=== PATIENT | female | born 1950 | race African-American/Black ===

== ENCOUNTER 2020-08-16 18:00 | Emergency (ER) | payer SELFPAY ==
[2020-08-16 19:33] LABS: Protime INR 1.08
[2020-08-16 19:35] LABS: Absolute Lymphocytes (CBC) 0.8 K/uL (0.7-4.9); Basophils % 1.1 % (0-1.3); Hematocrit 38.1 % (36.0-45.0); MPV 8.2 fL (7.6-11.3); RBC Red Blood Cell Count 5.33 M/uL (3.86-4.86)
[2020-08-16] MEDS ORDERED: BENZONATATE 100 MG CAP PO ONE (19:37)
[2020-08-16 19:49] LABS: ALT/SGPT 13 U/L (12-78); AST/SGOT 16 U/L (15-37); Albumin 3.8 g/dL (3.4-5.0); Alkaline Phosphatase 87 U/L (45-117); BUN Blood Urea Nitrogen 14 mg/dL (7-18); Bicarbonate 21 mmol/L (21-32); Bilirubin Direct < 0.1 mg/dL (0-0.2); Bilirubin Total 0.2 mg/dL (0.2-1.0); Glucose Level 104 mg/dL (74-106); Magnesium 2.3 mg/dL (1.8-2.4); NT PRO-BNP 81 pg/mL (<125); Protein, Total 8.2 g/dL (6.4-8.2); Sodium Level 145 mmol/L (136-145); Troponin (Emerg Dept Use Only) < 0.02 ng/mL (0.0-0.045)
--- NOTE | 2020-08-16 19:50 | RAD REPORT ---
EXAM DESCRIPTION: RAD - Chest Single View - 08/16/2020 7:04 pm CLINICAL HISTORY: Cough;SOB COMPARISON: None TECHNIQUE: AP portable chest image was obtained 08/16/2020 7:04 pm . FINDINGS: Lungs appear fibrotic with no peripheral mass or consolidation. No failure or volume ident ified. Heart and vasculature are normal. No measurable pleural effusion and no pneumothorax. No acute bone finding. Moderately prominent scoliotic curvature present in the spine. No acute aortic finding s suspected. IMPRESSION: Prominent interstitial pattern likely baseline mild fibrosis. No acute cardiopulmonary finding.
[2020-08-16 20:21] LABS: Blood Morphology Comment NOTED (NOT SEEN); Platelet Estimate ADEQ; White Blood Cell Scan OK (OK)
[2020-08-16 20:22] LABS: Burr Cells FEW
[2020-08-16] MEDS ORDERED: POTASSIUM 25 MEQ EFFERV TAB ONE (20:23)
[2020-08-16 20:50] LABS: SARS-COV-2 RT PCR NEGATIVE (NEGATIVE)
[2020-08-16] MEDS ORDERED: NA CHLORIDE 0.9% 250 ML ONE (20:59)
--- NOTE | 2020-08-16 21:45 | ER ---
Nurse's Notes [facility] Name: Kristine Christensen Age: 69 yrs Sex: Female : 1950 Arrival Date: 08/16/2020 Time: 18:01 Bed 13 Private MD: Diagnosis: Cough Presentation: 08/16 18:06 Chief complaint: Patient states: Cough and SOB started today. Denies fever. Coronavirus ca1 screen: Client denies travel out of the [place] in the last 14 days. cough unrelated to allergies, shortness of breath, Client presents with at least one sign or symptom that may indicate coronavirus-19. Standard/surgical mask placed on the client. Provider contacted for isolation considerations. Ebola Screen: Patient negative for fever greater than or equal to 101.5 degrees Fahrenheit, and additional compatible Ebola Virus Disease symptoms Patient denies exposure to infectious person. Patient denies travel to an Ebola-affected area in the 21 days before illness onset. No symptoms or risks identified at this time. Initial Sepsis Screen: Does the patient meet any 2 criteria? No. Patient's initial sepsis screen is negative. Does the patient have a suspected source of infection? No. Patient's initial sepsis screen is negative. Risk Assessment: Do you want to hurt yourself or someone else? Patient reports no desire to harm self or others. Onset of symptoms was August 16, 2020. 18:06 Method Of Arrival: Wheelchair ca1 18:06 Acuity: MARY 3 ca1 Triage Assessment: 18:19 General: Appears in no apparent distress. comfortable, Behavior is calm, cooperative, ca1 appropriate for age. Pain: Denies pain. EENT: No signs and/or symptoms were reported regarding the EENT system. Neuro: Level of Consciousness is awake, alert, obeys commands, Oriented to person, place, time, situation. Cardiovascular: Heart tones S1 S2 present Capillary refill < 3 seconds Patient's skin is warm and dry. Rhythm is sinus tachycardia. Respiratory: Reports shortness of breath on exertion since this morning cough that is Onset: The symptoms/episode began/occurred this morning, the patient has mild shortness of breath. GI: Abdomen is flat, non-distended, Bowel sounds present X 4 quads. Abd is soft and non tender X 4 quads. : No signs and/or symptoms were reported regarding the genitourinary system. Derm: Skin is intact, is healthy with good turgor, Skin is pink, warm \T\ dry. Musculoskeletal: Circulation, motion, and sensation intact. Capillary refill < 3 seconds. Historical: - Allergies: 18:19 No Known Allergies; ca1 - Home Meds: 18:19 None [Active]; ca1 - PMHx: 18:19 None; ca1 - PSHx: 18:19 ; ca1 - Immunization history:: Pneumococcal vaccine is not up to date, Flu vaccine is up to date. - Social history:: Smoking status: Patient denies any tobacco usage or history of. Screenin:10 Abuse screen: Denies threats or abuse. Denies injuries from another. Nutritional ca1 screening: No deficits noted. Tuberculosis screening: No symptoms or risk factors identified. Fall Risk IV access (20 points). Assessment: 18:10 Reassessment: See triage notes. Cardiovascular: Heart tones S1 S2 present Capillary ca1 refill < 3 seconds Patient's skin is warm and dry. Rhythm is sinus tachycardia. Respiratory: Airway is patent Respiratory effort is even, unlabored, Breath sounds are clear bilaterally. 19:24 Reassessment: Patient appears in no apparent distress at this time. Patient and/or ca1 family updated on plan of care and expected duration. Pain level reassessed. Patient is alert, oriented x 3, equal unlabored respirations, skin warm/dry/pink. Vital Signs: 18:06 BP 136 / 81; Pulse 107; Resp 22 S; Temp 97.3(O); Pulse Ox 97% on R/A; Weight 54.43 kg ca1 (R); Height 5 ft. 2 in. (157.48 cm); Pain 0/10; 19:24 BP 143 / 81; Pulse 106; Resp 19; Pulse Ox 95% on R/A; ca1 18:06 Body Mass Index 21.95 (54.43 kg, 157.48 cm) ca1 ED Course: 18:01 Patient arrived in ED. ds1 18:10 Patient has correct armband on for positive identification. Placed in gown. Bed in low ca1 position. Call light in reach. Side rails up X2. teletypesetter monitor on. Pulse ox on. NIBP on. 18:10 No provider procedures requiring assistance completed. ca1 18:15 Sarah Romano, IVANA is Primary Nurse. ca1 18:16 Hugo Chowdhury PA is PHCP. cp 18:16 Chetan Camejo MD is Attending Physician. cp 18:18 Triage completed. ca1 18:19 Arm band placed on right wrist. ca1 19:03 XRAY Chest (1 view) In Process Unspecified. EDMS 19:08 Initial lab(s) drawn, by me, sent to lab. Inserted saline lock: 22 gauge in right ca1 antecubital area, using aseptic technique. Blood collected. 19:30 Report given to IVANA Hammond. ca1 Administered Medications: 19:23 Drug: Tessalon Perle 100 mg Route: PO; ca1 20:10 Drug: Potassium Effervescent Tablet 50 mEq Route: PO; ll2 20:30 Drug: NS 0.9% 250 ml Route: IV; Rate: bolus; Site: right antecubital; ll2 22:00 Not Given (Physician Discretion): Labetalol 10 mg IVP once over 2 mins; Hold if HR less ll2 than 60, notify provider. Ask for repeat dosage for SBP remaining greater than 140 mmHg. Outcome: 21:45 Discharge ordered by . cp 22:01 Patient left the ED. ll2 Signatures: Dispatcher [employer] EDKS Annabel Sewell ds1 Hugo Chowdhury PA PA cp Sarah Romano RN RN ca1 Stephany Holden RN RN ll2 Corrections: (The following items were deleted from the chart) 18:21 18:06 BP 136 / 81; Pulse 107bpm; Resp 19bpm; Spontaneous; Pulse Ox 97% RA; Temp 97.3F ca1 Oral; 54.43 kg Reported; Height 5 ft. 2 in.; BMI: 21.9; Pain 0/10; ca1
--- NOTE | 2020-08-16 21:45 | EDPHYS ---
Physician Documentation [facility] Name: Kristine Christensen Age: 69 yrs Sex: Female : 1950 Arrival Date: 08/16/2020 Time: 18:01 Bed 13 Private MD: ED Physician Chetan Camejo HPI: 08/16 18:40 This 69 yrs old Black Female presents to ER via Wheelchair with complaints of Shortness cp Of Breath. 18:40 The patient has shortness of breath with light activity. Onset: The symptoms/episode cp began/occurred today. The patient's shortness of breath is aggravated by light activity. Associated signs and symptoms: Pertinent positives: productive cough, Pertinent negatives: chest pain, diaphoresis, dizziness, fever. Severity of symptoms: in the emergency department the symptoms are unchanged despite home interventions. Historical: - Allergies: 18:19 No Known Allergies; ca1 - Home Meds: 18:19 None [Active]; ca1 - PMHx: 18:19 None; ca1 - PSHx: 18:19 ; ca1 - Immunization history:: Pneumococcal vaccine is not up to date, Flu vaccine is up to date. - Social history:: Smoking status: Patient denies any tobacco usage or history of. ROS: 18:45 Constitutional: Negative for body aches, chills, fever, poor PO intake. cp 18:45 Eyes: Negative for injury, pain, redness, and discharge. cp 18:45 ENT: Negative for ear pain, sore throat, difficulty swallowing, difficulty handling secretions. 18:45 Cardiovascular: Negative for chest pain, edema, palpitations. 18:45 Respiratory: Positive for cough, with no reported sputum, shortness of breath, on exertion. Negative for wheezing. 18:45 Abdomen/GI: Negative for abdominal pain, nausea, vomiting, and diarrhea, black/tarry stool, rectal bleeding. 18:45 Back: Negative for pain at rest, pain with movement. 18:45 Skin: Negative for rash. 18:45 Neuro: Negative for altered mental status, headache, syncope, weakness. 18:45 All other systems are negative. Exam: 19:00 Constitutional: The patient appears in no acute distress, alert, awake, cp non-diaphoretic, non-toxic, well developed, well nourished. 19:00 Head/Face: Normocephalic, atraumatic. cp 19:00 Eyes: Periorbital structures: appear normal, Conjunctiva: normal, no exudate, no injection, Sclera: no appreciated abnormality, Lids and lashes: appear normal, bilaterally. 19:00 ENT: External ear(s): are unremarkable, Nose: is normal, Mouth: Lips: moist, Oral mucosa: moist, Posterior pharynx: Airway: no evidence of obstruction, patent. 19:00 Neck: ROM/movement: is normal, is supple, without pain, no range of motions limitations. 19:00 Chest/axilla: Inspection: normal, Palpation: crepitus, is not appreciated, tenderness, is not appreciated. 19:00 Cardiovascular: Rate: tachycardic, Rhythm: regular, Heart sounds: murmur, not appreciated, rub, not appreciated, gallop, not appreciated, Edema: is not appreciated, JVD: is not appreciated. 19:00 Respiratory: the patient does not display signs of respiratory distress, Respirations: normal, no use of accessory muscles, no retractions, labored breathing, is not present, Breath sounds: are clear throughout, no decreased breath sounds, no stridor, no wheezing. 19:00 Abdomen/GI: Inspection: abdomen appears normal, Palpation: abdomen is soft and non-tender, in all quadrants. 19:00 Back: pain, is absent, ROM is normal. 19:00 Skin: no rash present. 19:00 Neuro: Orientation: to person, place \\T\\ time. Mentation: is normal, Motor: moves all fours, strength is normal, Sensation: no obvious gross deficits. 19:50 ECG was reviewed by the Attending Physician. cp Vital Signs: 18:06 BP 136 / 81; Pulse 107; Resp 22 S; Temp 97.3(O); Pulse Ox 97% on R/A; Weight 54.43 kg ca1 (R); Height 5 ft. 2 in. (157.48 cm); Pain 0/10; 19:24 BP 143 / 81; Pulse 106; Resp 19; Pulse Ox 95% on R/A; ca1 18:06 Body Mass Index 21.95 (54.43 kg, 157.48 cm) ca1 MDM: 18:28 Patient medically screened. cp 19:00 Differential diagnosis: Bronchitis CHF exacerbation, Myocardial Infarction pneumonia, cp pulmonary edema, Pulmonary Embolism Sepsis Unstable Angina. 21:45 Antibiotic administration: Not indicated, the patient does not have an appreciated cp infiltrate. 21:45 Data reviewed: vital signs, nurses notes, lab test result(s), EKG, radiologic studies, cp plain films. Test interpretation: by ED physician or midlevel provider: ECG, plain radiologic studies. Counseling: I had a detailed discussion with the patient and/or guardian regarding: the historical points, exam findings, and any diagnostic results supporting the discharge/admit diagnosis, the presence of at least one elevated blood pressure reading (>120/80) during this emergency department visit, lab results, radiology results, the need for outpatient follow up, a family practitioner, to return to the emergency department if symptoms worsen or persist or if there are any questions or concerns that arise at home. Response to treatment: the patient's symptoms have mildly improved after treatment, and as a result, I will discharge patient. ED course: VSS. Labs, EKG, chest xray reviewed. Patient appears non-toxic and no signs of respiratory distress. Will discharge to home for continued monitoring. 08/16 18:32 Order name: Influenza Screen (a \\T\\ B) cp 08/16 18:32 Order name: COVID-19 : Document "Date of Symptom Onset" if Symptomatic. cp 02 18:32 Order name: Basic Metabolic Panel cp 08/16 18:32 Order name: CBC with Diff cp 08/16 18:32 Order name: LFT's cp 08/16 18:32 Order name: Magnesium cp 08/16 18:32 Order name: NT PRO-BNP; Complete Time: 19:53 cp 08/16 18:32 Order name: PT-INR; Complete Time: 21:42 cp 08/16 21:29 Interpretation: Abnormal: PT 12.7. cp 08/16 18:32 Order name: Troponin (emerg Dept Use Only); Complete Time: 19:53 cp 08/16 18:33 Order name: Basic Metabolic Panel; Complete Time: 19:53 EDMS 02 19:53 Interpretation: Normal except: K 3.0; CL 115; GFR 55. cp 08/16 18:33 Order name: CBC with Automated Diff; Complete Time: 20:43 EDMS 08/16 20:11 Interpretation: Normal except: RBC 5.33; MCV 71.5; MCH 22.8; MCHC 31.8; RDW 16.5; NAZARIO% cp 85.5; LYM% 9.0. 08/16 18:33 Order name: Liver (Hepatic) Function; Complete Time: 19:53 EDMS 08/16 18:32 Order name: XRAY Chest (1 view); Complete Time: 19:53 08/16 20:12 Interpretation: Report reviewed. 08/16 18:32 Order name: EKG; Complete Time: 18:34 cp 08/16 18:32 Order name: Cardiac monitoring; Complete Time: 19:23 cp 08/16 18:32 Order name: IV Saline Lock; Complete Time: 19:24 cp 08/16 18:32 Order name: Labs collected and sent; Complete Time: 19:24 cp 08/16 18:33 Order name: Magnesium; Complete Time: 19:53 EDMS 08/16 19:37 Order name: CBC Smear Scan; Complete Time: 20:43 EDMS 08/16 20:44 Order name: LAB Add On 08/16 20:50 Order name: COVID-19/FLU A+B; Complete Time: 21:18 EDMS 08/16 21:18 Interpretation: Report reviewed. 08/16 21:20 Order name: D-Dimer; Complete Time: 21:42 EDMS 08/16 18:32 Order name: O2 Per Protocol; Complete Time: 19:24 08/16 18:32 Order name: O2 Sat Monitoring; Complete Time: 19:24 08/16 20:12 Order name: Urine Dipstick-Ancillary (obtain specimen) cp EC:50 Rate is 82 beats/min. Rhythm is regular. WI interval is normal. QRS interval is normal. cp QT interval is normal. Interpreted by me. Reviewed by me. Administered Medications: 19:23 Drug: Tessalon Perle 100 mg Route: PO; ca1 20:10 Drug: Potassium Effervescent Tablet 50 mEq Route: PO; ll2 20:30 Drug: NS 0.9% 250 ml Route: IV; Rate: bolus; Site: right antecubital; ll2 22:00 Not Given (Physician Discretion): Labetalol 10 mg IVP once over 2 mins; Hold if HR less ll2 than 60, notify provider. Ask for repeat dosage for SBP remaining greater than 140 mmHg. Disposition: 08/16/20 21:45 Discharged to Home. Impression: Cough. - Condition is Stable. - Discharge Instructions: Cough, Adult. - Prescriptions for Tessalon Perles 100 mg Oral Capsule - take 1 capsule by ORAL route every 8 hours As needed; 15 capsule. - Medication Reconciliation Form, Thank You Letter, Antibiotic Education, Prescription Opioid Use form. - Follow up: Private Physician; When: 1 - 2 days; Reason: Worsening of condition. - Problem is new. - Symptoms have improved. Addendum: 08/22/2020 19:17 Co-signature as Attending Physician, Chetan Camejo MD. m a2 Signatures: Dispatcher [employer] EDMS Hugo Chowdhury PA PA cp Chetan Camejo MD MD ma2 Sraah Romano, RN RN ca1 Stephany Holden RN RN ll2 Corrections: (The following items were deleted from the chart) 08/16 19:51 18:33 Influenza Screen (A ordered. EDND EDMS 19:51 18:33 CORONAVIRUS ordered. EDND EDMS 21:19 21:16 D-Dimer ordered. EDND EDMS 22:01 21:45 08/16/2020 21:45 Discharged to Home. Impression: Cough. Condition is Stable. ll2 Forms are Medication Reconciliation Form, Thank You Letter, Antibiotic Education, Prescription Opioid Use. Follow up: Private Physician; When: 1 - 2 days; Reason: Worsening of condition. Problem is new. Symptoms have improved. cp
--- NOTE | 2020-08-17 12:17 | EKG ---
Test Date: 2020-08-16 Test Time: 19:42:38 Director Of Research [facility]: LL MEASUREMENT RESULTS: Intervals: Rate: 82 NH: 192 QRSD: 76 QT: 376 QTc: 439 [place]: P: 56 NH: 192 QRS: -11 T: 49 INTERPRETIVE STATEMENTS: Normal sinus rhythm Minimal voltage criteria for LVH, may be normal variant Borderline ECG No previous ECG available for comparison Electronically Signed On 08-17-20 12:15:20 [employer] by Toro Chacon
== END 2020-08-16 22:01 | disposition home or self-care (01) ==
LOC: ER 18:00
DX: R05 Cough (principal); Z20.822 Contact with and (suspected) exposure to COVID-19; R06.02 Shortness of breath
CPT/HCPCS: 0240U; 36415; 71045; 80048; 80076; 83735; 83880; 84484; 85025; 85379; 85610; 93005; 96374; 99284; J7050

== ENCOUNTER 2022-06-23 11:50 | Emergency (ER) | payer SELFPAY ==
--- NOTE | 2022-06-23 12:59 | ER ---
Nurse's Notes [facility] Name: Kristine Christensen Age: 71 yrs Sex: Female : 1950 Arrival Date: 06/23/2022 Time: 11:50 Bed 14 Private MD: Diagnosis: Sleep disturbance Presentation: 06/23 12:31 Chief complaint: Patient states: I was panicky all night and had anxiety, sometimes I iw think there are people in my house , her daughter states she has checked the house and does not believe there are people getting in the house, today she had a panic attack, pt states I'm just going crazy. 12:34 Coronavirus screen: At this time, the client does not indicate any symptoms associated iw with coronavirus-19. Ebola Screen: Patient negative for fever greater than or equal to 101.5 degrees Fahrenheit, and additional compatible Ebola Virus Disease symptoms Patient denies exposure to infectious person. Patient denies travel to an Ebola-affected area in the 21 days before illness onset. No symptoms or risks identified at this time. Initial Sepsis Screen: Does the patient meet any 2 criteria? No. Patient's initial sepsis screen is negative. Does the patient have a suspected source of infection? No. Patient's initial sepsis screen is negative. Risk Assessment: Do you want to hurt yourself or someone else? Patient reports no desire to harm self or others. Onset of symptoms was June 23, 2022. 12:34 Method Of Arrival: Ambulatory iw 12:34 Acuity: MARY 3 iw Historical: - Allergies: 12:33 No Known Allergies; iw - Home Meds: 12:33 None [Active]; iw - PMHx: 12:33 None; iw - PSHx: 12:33 section; iw Vital Signs: 12:34 BP 180 / 91; Pulse 89; Resp 16; Temp 98.1; Pulse Ox 99% on R/A; iw ED Course: 11:50 Patient arrived in ED. as 12:33 Arm band placed on. iw 12:34 Triage completed. iw 12:44 Jose Juan Hunter MD is Attending Physician. rt 13:12 Arabella Salvador, RN is Primary Nurse. iw Administered Medications: No medications were administered Outcome: 12:59 Discharge ordered by MD. rt 13:12 Patient left the ED. iw Signatures: Celine Nieves as Arabella Salvador, RN RN iw Jose Juan Hunter MD MD rt
--- NOTE | 2022-06-23 12:59 | EDPHYS ---
Physician Documentation [facility] Name: Kristine Christensen Age: 71 yrs Sex: Female : 1950 Arrival Date: 06/23/2022 Time: 11:50 Bed 14 Private MD: ED Physician oJse Juan Hunter HPI: 06/23 13:02 This 71 yrs old Black Female presents to ER via Ambulatory with complaints of Crying, rt unable to sleep. 13:02 Onset: The symptoms/episode began/occurred last night. Severity of symptoms: At their rt worst the symptoms were moderate in the emergency department the symptoms have resolved. Patient presents to the ED with a sleep disturbance last night. Patient states that she was up all night, felt that people were in her house. She was crying all morning. Patient was brought in for further evaluation by her daughter. Her daughter denies any other acute symptoms. Patient states that she feels better and the symptoms have resolved in the ED and that she feels normal. She denies any hallucinations at this time, denies suicidal, homicidal ideation. Patient denies any physical symptoms. Symptoms are moderate severity, currently resolved, no other aggravating or alleviating factors.. Historical: - Allergies: 12:33 No Known Allergies; iw - Home Meds: 12:33 None [Active]; iw - PMHx: 12:33 None; iw - PSHx: 12:33 section; iw ROS: 13:02 Constitutional: Negative for fever, chills, and weight loss, Eyes: Negative for injury, rt pain, redness, and discharge, Neck: Negative for injury, pain, and swelling, Cardiovascular: Negative for chest pain, palpitations, and edema, Respiratory: Negative for shortness of breath, cough, wheezing, and pleuritic chest pain, Abdomen/GI: Negative for abdominal pain, nausea, vomiting, diarrhea, and constipation, Neuro: Negative for headache, weakness, numbness, tingling, and seizure. 13:02 Psych: Positive for Sleep disturbance, negative for suicidal ideation. Exam: 13:02 Constitutional: This is a well developed, well nourished patient who is awake, alert, rt and in no acute distress. Head/Face: Normocephalic, atraumatic. Chest/axilla: Normal chest wall appearance and motion. Nontender with no deformity. No lesions are appreciated. Cardiovascular: Regular rate and rhythm with a normal S1 and S2. No gallops, murmurs, or rubs. Normal PMI, no JVD. No pulse deficits. Respiratory: Lungs have equal breath sounds bilaterally, clear to auscultation and percussion. No rales, rhonchi or wheezes noted. No increased work of breathing, no retractions or nasal flaring. Abdomen/GI: Soft, non-tender, with normal bowel sounds. No distension or tympany. No guarding or rebound. No evidence of tenderness throughout. Skin: Warm, dry with normal turgor. Normal color with no rashes, no lesions, and no evidence of cellulitis. MS/ Extremity: Pulses equal, no cyanosis. Neurovascular intact. Full, normal range of motion. Neuro: Awake and alert, GCS 15, oriented to person, place, time, and situation. Cranial nerves II-XII grossly intact. Motor strength 5/5 in all extremities. Sensory grossly intact. Cerebellar exam normal. Normal gait. Psych: Awake, alert, with orientation to person, place and time. Behavior, mood, and affect are within normal limits. Vital Signs: 12:34 BP 180 / 91; Pulse 89; Resp 16; Temp 98.1; Pulse Ox 99% on R/A; iw MDM: 12:47 Patient medically screened. rt 13:02 Differential Diagnosis Panic episode, depression, sunny, nightmare. Data reviewed: rt vital signs, nurses notes. ED course: Presents to the ED with a sleep disturbance, suspect that she had a night terror. She is currently asymptomatic in the ED. She has no physical symptoms, stable vital signs. I do not suspect an organic etiology at this time. Patient is clearly not manic. She is not a threat to her self or others nor she gravely disabled. After discussion with the patient, she is stable for outpatient care, PCP follow-up and return precautions were discussed.. Administered Medications: No medications were administered Disposition Summary: 06/23/22 12:59 Discharge Ordered Location: Home rt Problem: new rt Symptoms: are resolved rt Condition: Stable rt Diagnosis - Sleep disturbance rt Followup: rt - With: Private Physician - When: 2 - 3 days - Reason: Discharge Instructions: - Discharge Summary Sheet rt - Quality Sleep Information, Adult rt Forms: - Medication Reconciliation Form rt - Thank You Letter rt - Antibiotic Education rt - Prescription Opioid Use rt Signatures: Arabella Salvador, RN RN iw Jose Juan Hunter MD MD rt
[2022-06-23 19:47] VITALS: BP 180/91; TEMP 98.1; O2SAT 99
== END 2022-06-23 13:12 | disposition home or self-care (01) ==
LOC: ER 11:50
DX: G47.9 Sleep disorder, unspecified (principal)
CPT/HCPCS: 99281